=== PATIENT | male | born 1960 | race African-American/Black ===

== ENCOUNTER 2017-07-26 20:05 | Inpatient (IN) | payer OTHER ==
[~2017-07-26] VITALS: Ht 180.3 cm; Wt 132.0 kg
[~2017-07-26 20:05] MED LIST: ATORVASTATIN; LOSARTAN; SEROQUEL
[2017-07-26] MEDS ORDERED: ACETAMINOPHEN 325MG TABLET PO STA (22:24)
[2017-07-26] MEDS ORDERED: PANTOPRAZOLE SODIUM 40 MG/VIAL IV STA (22:24)
[2017-07-26] MEDS ORDERED: ONDANSETRON HCL 4MG/2ML VIAL IV STA (22:24)
[2017-07-26] MEDS ORDERED: SODIUM CHLORIDE 0.9% 1,000 ML IV ONE (22:24)
[2017-07-26] MEDS ORDERED: FAMOTIDINE 20MG/2ML VIAL IV STA (22:24)
[2017-07-26] MEDS ORDERED: MORPHINE SULFATE 4 MG/ML CPJ (NOT FOR IM USE) IV STA (22:24)
[2017-07-26] MEDS ORDERED: OCTREOTIDE ACETATE 50 MCG/ML 1ML IV STA (22:24)
[2017-07-26] MEDS ORDERED: LEVOFLOXACIN 750MG PREMIX 150 ML IV ONE (22:30)
[2017-07-26] MEDS ORDERED: METRONIDAZOLE 500 MG PREMIX 100 ML IV ONE (22:30)
[2017-07-26 22:44] LABS: BASOPHILS % 0.8 % (0.0-2.0); EOSINOPHILS % 5.7 % (0.0-5.0); HEMATOCRIT. 44.7 % (42.0-52.0); HEMOGLOBIN. 15.5 g/dL (14.0-18.0); LYMPHOCYTES % 27.2 % (20.0-50.0); MEAN CORPUSCULAR HEMOGLOBIN 32.6 pg (28.0-32.0); MEAN CORPUSCULAR VOLUME 93.9 fL (80.0-94.0); MEAN PLATELET VOLUME 8.2 fl (7.4-10.4); MONOCYTES % 8.6 % (2.0-8.0); NEUTROPHILS % 57.7 % (40.0-76.0); PLATELET 218 x1000/uL (130-400); RED BLOOD CELL COUNT 4.76 mill/uL (4.7-6.1); RED CELL DISTRIBUTION WIDTH 12.6 % (11.6-14.6)
[2017-07-26 22:52] LABS: PARTIAL THROMBOPLASTIN TIME 29.2 sec (23.4-31.0); PROTHROMBIN TIME 10.6 sec (9.4-11.6)
[2017-07-26 23:01] LABS: CARBON DIOXIDE 26 mEq/L (21-32); CHLORIDE 110 mEq/L (98-107); ETHANOL BLOOD < 10 mg/dL; TROPONIN I < 0.02 ng/mL (0.00-0.04)
[2017-07-27] VITALS (8 sets, daily range): BP systolic 102–132; BP diastolic 60–87
[2017-07-27 00:07] LABS: CLARITY URINE CLEAR (CLEAR); COLOR URINE YELLOW (YELLOW); GLUCOSE URINE NEGATIVE (NEGATIVE); KETONES URINE TRACE (NEGATIVE); LEUKOCYTE ESTERASE URINE NEGATIVE (NEGATIVE); NITRITE URINE NEGATIVE (NEGATIVE); OCCULT BLOOD URINE NEGATIVE (NEGATIVE); PH URINE 6.5 (4.5-8.0); PROTEIN URINE 1+ (NEGATIVE); SPECIFIC GRAVITY URINE 1.031 (1.005-1.030); UROBILINOGEN URINE 0.2 E.U./dL (0.2-1.0)
[2017-07-27 01:03] LABS: *AMPHETAMINES SCREEN URINE NEGATIVE (NEGATIVE); *BARBITURATES SCREEN URINE NEGATIVE (NEGATIVE); *BENZODIAZEPINES SCREEN URINE NEGATIVE (NEGATIVE); *COCAINE SCREEN URINE PRESUMTIVE POSITIVE (NEGATIVE); CANNABINOID URINE SCREEN NEGATIVE (NEGATIVE); METHADONE URINE SCREEN NEGATIVE (NEGATIVE); OPIATES URINE SCREEN NEGATIVE (NEGATIVE); PHENCYCLIDINE URINE SCREEN NEGATIVE (NEGATIVE)
[2017-07-27] MEDS: SODIUM CHLORIDE 0.9% 1,000 ML IV SCH ×2 (01:13→16:44)
[2017-07-27] MEDS ORDERED: CLONIDINE 0.1MG TABLET PO PRN (01:15)
[2017-07-27] MEDS ORDERED: MAGNESIUM/ALUMINUM HYDROXIDE/SIMETHICONE 30ML UDC PO PRN (01:15)
[2017-07-27] MEDS ORDERED: ONDANSETRON HCL 4MG/2ML VIAL IV PRN (01:15)
[2017-07-27] MEDS ORDERED: CEFTRIAXONE 1 G PREMIX 50 ML IV SCH (01:15)
[2017-07-27] MEDS ORDERED: IPRATROPIUM/ALBUTEROL 0.5-3(2.5)MG/3ML NEB INH PRN (01:15)
[2017-07-27 04:26] LABS: HEMATOCRIT 46.2 % (42.0-52.0); HEMOGLOBIN 15.6 g/dL (14.0-18.0)
[2017-07-27 04:44] LABS: CARBON DIOXIDE 31 mEq/L (21-32); CHLORIDE 107 mEq/L (98-107)
[2017-07-27 04:52] LABS: CREATINE KINASE MB FRACTION 8.4 ng/mL (0.5-3.6); TROPONIN I < 0.02 ng/mL (0.00-0.04)
[2017-07-27 04:56] LABS: CREATINE KINASE 1677 IU/L (39-308)
[2017-07-27] MEDS: AZITHROMYCIN 500 MG TABLET PO SCH (08:47)
[2017-07-27] MEDS: ACETAMINOPHEN 325MG TABLET PO PRN (09:00)
[2017-07-27 17:34] LABS: HEMATOCRIT 46.5 % (42.0-52.0); HEMOGLOBIN 16.2 g/dL (14.0-18.0)
[2017-07-27 17:50] LABS: CREATINE KINASE MB FRACTION 6.2 ng/mL (0.5-3.6); TROPONIN I < 0.02 ng/mL (0.00-0.04)
[2017-07-27 17:57] LABS: CREATINE KINASE 1144 IU/L (39-308)
[2017-07-27 22:51] LABS: HEMATOCRIT 45.3 % (42.0-52.0); HEMOGLOBIN 15.9 g/dL (14.0-18.0)
[2017-07-28] VITALS (7 sets, daily range): BP systolic 116–129; BP diastolic 74–88
[2017-07-28 06:47] LABS: BASOPHILS % 0.9 % (0.0-2.0); EOSINOPHILS % 5.2 % (0.0-5.0); HEMATOCRIT. 45.6 % (42.0-52.0); HEMOGLOBIN. 15.8 g/dL (14.0-18.0); LYMPHOCYTES % 28.2 % (20.0-50.0); MEAN CORPUSCULAR HEMOGLOBIN 32.2 pg (28.0-32.0); MEAN CORPUSCULAR VOLUME 92.5 fL (80.0-94.0); MEAN PLATELET VOLUME 8.3 fl (7.4-10.4); NEUTROPHILS % 56.7 % (40.0-76.0); PLATELET 213 x1000/uL (130-400); RED BLOOD CELL COUNT 4.92 mill/uL (4.7-6.1); RED CELL DISTRIBUTION WIDTH 12.3 % (11.6-14.6)
[2017-07-28] MEDS: AZITHROMYCIN 500 MG TABLET PO SCH (08:58)
[2017-07-28] MEDS: SODIUM CHLORIDE 0.9% 1,000 ML IV SCH ×2 (09:06→15:41)
[2017-07-28] MEDS: ACETAMINOPHEN 325MG TABLET PO PRN ×2 (15:37→21:35)
[2017-07-29] VITALS: BP 116/80
[2017-07-29] MEDS: SODIUM CHLORIDE 0.9% 1,000 ML IV SCH (03:13)
[2017-07-29 04:00] VITALS: BP 121/87
[2017-07-29 06:34] LABS: BASOPHILS % 0.7 % (0.0-2.0); EOSINOPHILS % 4.1 % (0.0-5.0); HEMATOCRIT. 46.6 % (42.0-52.0); HEMOGLOBIN. 16.3 g/dL (14.0-18.0); LYMPHOCYTES % 29.8 % (20.0-50.0); MEAN CORPUSCULAR HEMOGLOBIN 32.9 pg (28.0-32.0); MEAN CORPUSCULAR VOLUME 93.8 fL (80.0-94.0); NEUTROPHILS % 58.4 % (40.0-76.0); RED BLOOD CELL COUNT 4.96 mill/uL (4.7-6.1); RED CELL DISTRIBUTION WIDTH 12.3 % (11.6-14.6)
[2017-07-29 06:44] LABS: CARBON DIOXIDE 26 mEq/L (21-32); CHLORIDE 107 mEq/L (98-107)
[2017-07-29 08:00] VITALS: BP 133/90
[2017-07-29] MEDS: AZITHROMYCIN 500 MG TABLET PO SCH (08:26)
[2017-07-29 12:47] VITALS: BP 143/93
[2017-07-29 12:58] VITALS: BP 143/93
[2017-07-29 14:13] LABS: PLATELET 226 x1000/uL (130-400)
== END 2017-07-29 13:50 | disposition home or self-care (01) | DRG 254 ==
LOC: ER 20:05 → 6WST 07-27 00:57 → EDBEDREQSVC 07-27 02:27 → ENRESERV 07-27 02:34 → 6WST 07-27 05:15
PROVIDERS: ADMIT Internal Medicine; ATTEND Internal Medicine
DX: K64.9 Unspecified hemorrhoids (principal); Z68.41 Body mass index [BMI] 40.0-44.9, adult; I10 Essential (primary) hypertension; E66.01 Morbid (severe) obesity due to excess calories; F20.9 Schizophrenia, unspecified; Z60.2 Problems related to living alone; J44.9 Chronic obstructive pulmonary disease, unspecified; F14.90 Cocaine use, unspecified, uncomplicated; F17.210 Nicotine dependence, cigarettes, uncomplicated; K57.90 Diverticulosis of intestine, part unspecified, without perforation or abscess without bleeding; M19.90 Unspecified osteoarthritis, unspecified site; R73.9 Hyperglycemia, unspecified; R91.1 Solitary pulmonary nodule; I25.2 Old myocardial infarction; Z79.899 Other long term (current) drug therapy
CPT/HCPCS: 36415; 71010; 71250; 74176; 80048; 80053; 80061; 80305; 81001; 81003; 82270; 82550; 82553; 83605; 83690; 84443; 84484; 85014; 85018; 85025; 85610; 85730; 87015; 87040; 87045; 87086; 87427; 87449; 87493; 89055; 93005; 93970; 96365; 96366; 96375; 96376; 99285; C9113; G0482; J0696; J1956; J2270; J2354; J2405; J3490; J7030